=== PATIENT | male | born 1980 | race Caucasian/White ===

== ENCOUNTER 2017-06-04 17:17 | Emergency (ER) | payer MEDICAID ==
[2017-06-04] MEDS: predniSONE 20 MG TAB PO (18:37)
== END 2017-06-04 18:41 | disposition home or self-care (01) ==
LOC: FTE 17:17
DX: Z76.0 Encounter for issue of repeat prescription (principal); K52.9 Noninfective gastroenteritis and colitis, unspecified
CPT/HCPCS: 99281; J7512

== ENCOUNTER 2017-06-14 00:12 | Emergency (ER) | payer SELFPAY, MEDICAID | END 2017-06-14 03:52 | disposition left against medical advice (07) | LOC: E/R 00:12 | DX: Z53.21 Procedure and treatment not carried out due to patient leaving prior to being seen by health care provider (principal) ==

== ENCOUNTER 2017-07-28 14:58 | Emergency (ER) | payer SELFPAY, MEDICAID | END 2017-07-28 15:50 | disposition home or self-care (01) | LOC: E/R 14:58 | DX: Z76.0 Encounter for issue of repeat prescription (principal); K51.90 Ulcerative colitis, unspecified, without complications; R40.2412 Glasgow coma scale score 13-15, at arrival to emergency department | CPT/HCPCS: 99281 ==

== ENCOUNTER 2017-08-05 00:07 | Emergency (ER) | payer SELFPAY ==
[2017-08-05] MEDS: METHYLPREDNISOLONE 125 MG INJ IV (01:20)
[2017-08-05 01:30] LABS: ADD MAN DIFF? NO
[2017-08-05 01:32] LABS: BASOPHILS % 0.4 % (0.0-2.0); EOSINOPHILS # 0.1 10^3/ul (0.0-0.5); EOSINOPHILS % 1.2 % (0.0-7.0); HEMATOCRIT 38.4 % (42.0-52.0); HEMOGLOBIN 11.4 g/dl (14.0-18.0); LYMPHOCYTES # 1.9 10^3/ul (0.8-2.9); LYMPHOCYTES % 24.6 % (15.0-51.0); MEAN CORPUSCULAR HEMOGLOBIN 23.7 pg (29.0-33.0); MEAN CORPUSCULAR HGB CONC 29.7 g/dl (32.0-37.0); MEAN CORPUSCULAR VOLUME 79.8 fl (82.0-101.0); MEAN PLATELET VOLUME 9.4 fl (7.4-10.4); MONOCYTE # 1.2 10^3/ul (0.3-0.9); MONOCYTES % 15.1 % (0.0-11.0); NEUTROPHIL # 4.5 10^3/ul (1.6-7.5); NEUTROPHILS % 58.4 % (39.0-77.0); PLATELET COUNT 401 10^3/UL (140-415); RED BLOOD COUNT 4.81 10^6/ul (4.70-6.10); RED CELL DISTRIBUTION WIDTH 15.4 % (11.5-14.5)
[2017-08-05 01:32] LABS: WHITE BLOOD COUNT 7.7 10^3/ul (4.8-10.8)
[2017-08-05 01:52] LABS: ANION GAP 17 (8-16); BLOOD UREA NITROGEN 11 mg/dl (7-20); CALCIUM 9.4 mg/dl (8.4-10.2); CARBON DIOXIDE 29 mmol/L (21-31); CHLORIDE 99 mmol/L (97-110); CREATININE 0.68 mg/dl (0.61-1.24); GLUCOSE 101 mg/dl (70-220); POTASSIUM 3.7 mmol/L (3.5-5.1); SODIUM 141 mmol/L (135-144)
== END 2017-08-05 03:06 | disposition home or self-care (01) ==
LOC: E/R 00:07
DX: K52.9 Noninfective gastroenteritis and colitis, unspecified (principal); F17.210 Nicotine dependence, cigarettes, uncomplicated
CPT/HCPCS: 80048; 85025; 96374; 99284-25

== ENCOUNTER 2018-08-31 13:00 | Emergency (ER) | payer SELFPAY, MEDICAID | END 2018-08-31 13:16 | disposition home or self-care (01) | LOC: FTE 13:16 | DX: K51.919 Ulcerative colitis, unspecified with unspecified complications (principal) | CPT/HCPCS: 99281 ==